=== PATIENT | male | born 1960 | race American Indian/Alaskan Native ===

== ENCOUNTER 2017-10-11 20:05 | Emergency (ER) | payer OTHER ==
[2017-10-11 20:17] VITALS: BP 164/96; RESP 16; TEMP 97.8; O2SAT 99
--- NOTE | 2017-10-11 21:17 | ED PDOC ---
Syncope/Near Syncope/Dizziness Time Seen by Provider: 10/11/17 20:14 Chief Complaint (Nursing): High Blood Pressure Chief Complaint (Provider): Brief Syncope History Per: Patient History/Exam Limitations: no limitations Additional Complaint(s): 57 year old male with a past medical hsitory of hypertension, bacterial menigitis (2014) and deafness who presents to the emergency department after experiencing a brief syncope episode in [facility] prior to arrival. Patient states he is homeless and spends a lot of time in [facility], hanging out, and doing some work/reading. Reports he was shopping in [place] and came back to the [facility]. Patient was standing at the time when he felt lightheadedness and blacked out for a few seconds. Denies fall, chest pain, shortness of breath , or palpitations. Of note, patient states he has had similar episodes in the past in [facility] and once while on the train. PMD: None Past Medical History Reviewed: Historical Data, Nursing Documentation, Vital Signs Vital Signs: Last Vital Signs Temp 97.8 F 10/11/17 20:07 Pulse 94 H 10/11/17 20:07 Resp 16 10/11/17 20:07 BP 164/96 H 10/11/17 20:07 Pulse Ox 99 10/11/17 20:07 - Medical History PMH: HTN Denies: Chronic Kidney Disease Other PMH: Bacterial meningitis - Surgical History Surgical History: No Surg Hx - Family History Family History: States: Unknown Family Hx - Living Arrangements Living Arrangements: Other (undomiciled) - Social History Current smoker - smoking cessation education provided: No Alcohol: None Drugs: Denies - Home Medications Home Medications: Ambulatory Orders Medication Instructions Recorded Enalapril Maleate [Vasotec] 5 mg PO DAILY #0 tab 03/16/15 amLODIPine [Norvasc] 10 mg PO DAILY #0 tab 03/16/15 predniSONE [predniSONE Tab] 60 mg PO DAILY #0 tab 03/16/15 Cyclobenzaprine [Cyclobenzaprine 10 mg PO BID #15 tab 08/31/16 HCl] Ibuprofen [Motrin Tab] 600 mg PO Q6 #30 tab 08/31/16 - Allergies Allergies/Adverse Reactions: Allergies Allergy/AdvReac Type Severity Reaction Status Date / Time No Known Allergies Allergy Unverified 05/28/15 16:09 Review of Systems ROS Statement: Except As Marked, All Systems Reviewed And Found Negative (As per HPI, otherwise negative) Cardiovascular: Negative for: Chest Pain, Palpitations Respiratory: Negative for: Shortness of Breath Neurological: Positive for: Other (brief syncope and lightheadedness (had resolved since)) Physical Exam - Reviewed Nursing Documentation Reviewed: Yes Vital Signs Reviewed: Yes - Physical Exam Appears: Positive for: Non-toxic, No Acute Distress Head Exam: Positive for: ATRAUMATIC, NORMAL INSPECTION, NORMOCEPHALIC Skin: Positive for: Normal Color, Warm, Dry Neck: Positive for: Normal, Supple Cardiovascular/Chest: Positive for: Regular Rate, Rhythm. Negative for: Murmur Respiratory: Positive for: Normal Breath Sounds. Negative for: Accessory Muscle Use, Respiratory Distress Gastrointestinal/Abdominal: Positive for: Normal Exam, Soft. Negative for: Tenderness Back: Positive for: Normal Inspection. Negative for: L CVA Tenderness, R CVA Tenderness Extremity: Positive for: Normal ROM. Negative for: Pedal Edema Neurologic/Psych: Positive for: Alert, Oriented (x3) - Laboratory Results Result Diagrams: 10/11/17 21:29 10/11/17 21:29 - ECG ECG: Positive for: Interpreted By Me, Viewed By Me ECG Rhythm: Positive for: Normal QRS, Normal ST Segment, Sinus Rhythm. Negative for: ST/T Changes Rate: 67 O2 Sat by Pulse Oximetry: 99 (RA) Pulse Ox Interpretation: Normal Medical Decision Making Medical Decision Making: Time: 2050 Initial Impression: Syncopal episode differential includes vasovagal syncope, neurological syncope, or cardiac arrhythmia Initial Plan: --EKG --BMP --Troponin I --CBC w/ diff --Head CT --Reevaluation Time: 2128 --Troponin: 0.0170 ng/mL Time: 2142 --Head CT FINDINGS: BRAIN: Diffuse, mild, age-related cortical atrophy and ventriculomegaly. Physiologic basal ganglia calcification. No significant acute abnormality identified. No acute hemorrhage seen within the brain. No acute extra-axial fluid collections visualized. No evidence of significant mass effect within the brain. VENTRICLES: See above. BONES/JOINTS: No acute fractures or other acute bony abnormality noted. SOFT TISSUES: No acute abnormality of the visualized soft tissues is seen. VASCULATURE: Atherosclerotic calcification. SINUSES: Visualized paranasal sinuses appear clear. MASTOID AIR CELLS: Mastoid air cells appear clear. IMPRESSION: - No acute findings seen within the brain. - See above for remaining findings. Upon provider reevaluation, patient is medically stable and has no further complaints. Will d/c and patient will follow up with PCP in 1-2 days. Clinical Impression: Syncope, Hypertension Scribe Attestation: Documented by Merline Moscoso & Nya Hopper, acting as scribes for Hanny Pinzon MD. Provider Scribe~Attestation: All medical record entries made by the Scribe were at my direction and personally dictated by me. I have reviewed the chart and agree that the record accurately reflects my personal performance of the history, physical exam, medical decision making, and the department course for this patient. I have also personally directed, reviewed, and agree with the discharge instructions and disposition. Disposition - Clinical Impression Clinical Impression: Syncope, Hypertension - Patient ED Disposition Is Patient to be Admitted: No Doctor Will See Patient In The: Office Counseled Patient/Family Regarding: Studies Performed, Diagnosis, Need For Followup - Disposition [facility]errals[facility] Disposition: Routine/Home Disposition Time: 23:15 Condition: GOOD Additional Instructions: Follow up with your PCP in 2-3 days. Instructions: Syncope (ED)
[2017-10-11 21:35] LABS: BASO # 0.1 K/uL (0.0-0.2); BASO % 1.2 % (0.0-2.0); EOS # 0.1 K/uL (0.0-0.7); EOS % 1.4 % (0.0-4.0); LYMPH # 1.2 K/uL (1.0-4.3); LYMPH % 19.3 % (20.0-40.0); MEAN CELL VOLUME 93.1 fl (80.0-94.0); MEAN CORPUSCULAR HEMOGLOBIN 30.2 pg (27.0-31.0); MEAN CORPUSCULAR HGB CONC 32.5 g/dL (33.0-37.0); MEAN PLATELET VOLUME 9.5 fl (7.2-11.7); MONO # 0.5 K/uL (0.0-0.8); MONO % 8.7 % (0.0-10.0); NEUT # 4.3 K/uL (1.8-7.0); NEUT % 69.4 % (50.0-75.0); RBC 4.28 Mil/uL (4.40-5.90); WHITE BLOOD COUNT 6.2 K/uL (4.8-10.8)
--- NOTE | 2017-10-11 21:44 | CT ---
EXAM: CT Head Without Intravenous Contrast EXAM DATE/TIME: 10/11/2017 8:51 PM CLINICAL HISTORY: 57 years old, male; Signs and symptoms; Other: Poss hypertension; Additional info: Syncope TECHNIQUE: Axial computed tomography images of the head/brain without intravenous contrast. All CT scans at this facility use one or more dose reduction techniques, viz.: automated exposure control; ma/kV adjustment per patient size (including targeted exams where dose is matched to indication; i.e. head); or iterative reconstruction technique. Coronal and sagittal reformatted images were created and reviewed. COMPARISON: Prior head CT of 03/02/2015 FINDINGS: BRAIN: Diffuse, mild, age-related cortical atrophy and ventriculomegaly. Physiologic basal ganglia calcification. No significant acute abnormality identified. No acute hemorrhage seen within the brain. No acute extra-axial fluid collections visualized. No evidence of significant mass effect within the brain. VENTRICLES: See above. BONES/JOINTS: No acute fractures or other acute bony abnormality noted. SOFT TISSUES: No acute abnormality of the visualized soft tissues is seen. VASCULATURE: Atherosclerotic calcification. SINUSES: Visualized paranasal sinuses appear clear. MASTOID AIR CELLS: Mastoid air cells appear clear. IMPRESSION: - No acute findings seen within the brain. - See above for remaining findings.
[2017-10-11 21:46] LABS: BLOOD UREA NITROGEN 17 mg/dl (9-20); CALCIUM 9.1 mg/dL (8.4-10.2); GFR AFRICAN-AMERICAN > 60; GFR NON-AFRICAN AMERICAN > 60
[2017-10-11 22:55] VITALS: PULSE 67
--- NOTE | 2017-10-12 12:47 | CARD ---
APPROVED REPORT EKG Measurement Heart [id number] <Conclusion> Normal sinus rhythm Possible Left atrial enlargement Nonspecific T wave abnormality Abnormal ECG
== END 2017-10-12 00:10 | disposition home or self-care (01) ==
LOC: H.ER 20:05
DX: R55 Syncope and collapse (principal); I10 Essential (primary) hypertension